=== PATIENT | female | born 1985 | race Caucasian/White ===

== ENCOUNTER 2020-07-05 09:36 | Outpatient (CLI) | payer BC ==
[2020-07-05 17:56] LABS: SARS-CoV-2 PCR by NAA Not Detected (NotDetected)
== END 2020-07-05 09:37 | disposition home or self-care (01) ==
LOC: CSHLAB 09:36
PROVIDERS: ATTEND Obstetrics & Gynecology
DX: Z20.822 Contact with and (suspected) exposure to COVID-19 (principal)
CPT/HCPCS: 87635; U0003; U0005

== ENCOUNTER 2024-03-21 16:37 | Inpatient (IN) | payer BC ==
[2024-03-21 17:22] VITALS: BMI 30.4
[2024-03-21 17:45] LABS: Hemoglobin 10.5 g/dL (12.0-15.5); Mean Corpuscular HGB CONC 30.9 g/dL (32.0-36.0); Mean Corpuscular Hemoglobin 24.6 pg (27.0-33.0); Mean Corpuscular Volume 79.6 fL (81.6-98.3); Mean Platelet Volume 10.3 fL (7.4-10.4); Platelet Count 209 10x3/uL (150-450); RBC Distribution Width 15.1 % (11.5-14.5); Red Blood Cell (RBC) Count 4.27 10x6/uL (3.90-5.03); White Blood Cell (WBC) Count 10.49 10x3/uL (3.5-10.5)
[2024-03-21] MEDS: Oxytocin 30 units/NS 500 ML 500 ML ONE ×2 (17:46→22:33)
[2024-03-21] MEDS: Lidocaine 1% (PF) 30 ML VIAL ONE (17:46)
[2024-03-21] MEDS ORDERED: Bisacodyl 10 MG SUPP PR PRN (18:13)
[2024-03-21] MEDS ORDERED: Milk Of Magnesia 30 ML UDCUP PO PRN (18:13)
[2024-03-21] MEDS ORDERED: hydrALAZINE 20 MG/ML VIAL SLOW IVP PRN (18:13)
[2024-03-21] MEDS ORDERED: Preparation H Ointment 28 GM TUBE PR PRN (18:13)
[2024-03-21] MEDS: Ibuprofen 800 MG TAB PO SCH (18:17)
[2024-03-21 19:02] LABS: Syphilis Antibody Nonreactive (Nonreactive); Syphilis Antibody Index 0.04 S/CO (<1.00 Non-Reactive)
[2024-03-21 19:04] LABS: HBsAg Index 0.17 S/CO (0-0.99); Hep B Surf Ag - L&D Non-Reactive S/CO (NonReactive)
[2024-03-21] MEDS: Misoprostol 200 MCG TAB ONE (19:30)
[2024-03-21] MEDS: traMADol HCl 50 MG TAB PO PRN (21:27)
[2024-03-21] MEDS: Docusate 100 MG CAP PO SCH (21:27)
[2024-03-21 22:17] LABS: HIV (1/2) Antibody/Antigen Non-Reactive (NonReactive)
[2024-03-21] MEDS: Boostrix 0.5 ML (Tdap) VIAL (>/=7 yrs of age) IM ONE (22:34)
[2024-03-21] MEDS: Benzocaine-Menthol 82.5 ML CAN TOP PRN (23:08)
[2024-03-22] MEDS: Prenatal Vitamin 1 TAB PO SCH (08:03)
[2024-03-22] MEDS: Ferrous Sulfate 325 MG TAB PO SCH (08:03)
[2024-03-23 07:41] VITALS: BP 109/55; TEMP 98.1
== END 2024-03-23 13:15 | disposition home or self-care (01) | DRG 807 ==
LOC: CSHLD/OP 16:37 → CSHLD 17:12 → CSHPP 21:35
PROVIDERS: ADMIT Obstetrics & Gynecology; ATTEND Obstetrics & Gynecology
PROC: 10E0XZZ Delivery of Products of Conception, External Approach (ICD-10-PCS; principal; 2024-03-21)
PROC: 0KQM0ZZ Repair Perineum Muscle, Open Approach (ICD-10-PCS; 2024-03-21)
DX: O70.1 Second degree perineal laceration during delivery (principal); Z37.0 Single live birth; Z3A.38 38 weeks gestation of pregnancy
CPT/HCPCS: 85027; 86780; 86850; 86900; 86901; 87340; 87389; 99285; J2590